=== PATIENT | female | born 1980 | race Caucasian/White ===

== ENCOUNTER 2017-07-05 15:04 | Emergency (ER) | payer BC ==
[~2017-07-05] VITALS: Ht 162.6 cm; Wt 54.4 kg
--- NOTE | 2017-07-05 15:27 | NUR ---
Patient discharged to home in stable conditon. Written and verbal after care instructions given to patient and family. Patient and family verbalized understanding of instructions.
== END 2017-07-05 15:28 | disposition home or self-care (01) ==
LOC: ER 15:04
DX: M54.5 Low back pain (principal)
CPT/HCPCS: 96372; 99283; A4663; J1885

== ENCOUNTER 2024-02-08 12:33 | Emergency (ER) | payer BC ==
[~2024-02-08] VITALS: Ht 160 cm; Wt 61.2 kg
[2024-02-08] MEDS ORDERED: LORA0.5T48 PO (13:44)
[2024-02-08] MEDS ORDERED: NEOM10DR11 RIGHT EAR (13:44)
[2024-02-08] MEDS ORDERED: LORAZEPAM 0.5 MG TABLET ONE (13:48)
[2024-02-08] MEDS: LORAZEPAM 0.5 MG TABLET PO ONE (13:49)
[2024-02-08 14:03] VITALS: BP 118/80; TEMP 98; O2SAT 99
== END 2024-02-08 14:03 | disposition home or self-care (01) ==
LOC: ER 12:33
DX: S16.1XXA Strain of muscle, fascia and tendon at neck level, initial encounter (principal); F07.81 Postconcussional syndrome; F41.9 Anxiety disorder, unspecified; F45.8 Other somatoform disorders; H66.91 Otitis media, unspecified, right ear; Z79.899 Other long term (current) drug therapy; W17.89XA Other fall from one level to another, initial encounter; Y93.89 Activity, other specified; Y92.89 Other specified places as the place of occurrence of the external cause; Y99.8 Other external cause status
CPT/HCPCS: A4606; A4663